=== PATIENT | female | born 1985 | race Caucasian/White ===

== ENCOUNTER 2018-05-22 15:18 | Emergency (ER) | payer SELFPAY ==
[~2018-05-22] VITALS: Ht 177.8 cm; Wt 100.9 kg
[~2018-05-22 15:18] MED LIST: MOTRIN 600600 MG/TAB PO; PRENATAL1 TA1 PO; SENOKOT S 50 MG1 TAB PO
[2018-05-22 15:25] VITALS: TEMP 98.9
[2018-05-22 16:55] VITALS: BP 106/80; PULSE 100
== END 2018-05-22 16:56 | disposition home or self-care (01) ==
LOC: COL.ER 15:18
DX: O9A.212 Injury, poisoning and certain other consequences of external causes complicating pregnancy, second trimester (principal); S30.0XXA Contusion of lower back and pelvis, initial encounter; Z79.1 Long term (current) use of non-steroidal anti-inflammatories (NSAID); Z3A.17 17 weeks gestation of pregnancy; W18.30XA Fall on same level, unspecified, initial encounter; Y99.0 Civilian activity done for income or pay

== ENCOUNTER 2018-10-30 14:54 | Inpatient (IN) | payer BC ==
[2018-10-30] VITALS (27 sets, daily range): BP systolic 93–164; BP diastolic 46–102; PULSE 86–137; TEMP 98.8
[~2018-10-30] VITALS: Ht 172.7 cm; Wt 110.5 kg
--- NOTE | 2018-10-30 14:55 | NUR ---
Patient ambulatory to LR4 with spouse, changed into gown, FHR/TOCO monitor placed and explained. Patient states she was having brown bloody discharge yesterday and today has become more bright red and having some irregular contractions, denies leaking of fluid. SVE-2/50/-3 per L.Bulk RN and dark bloody show on two fingers and noted small amount on inner thighs. Plan of care discussed.
[2018-10-30] MEDS ORDERED: COLACE 100100 MG/CAP PO (15:11)
[2018-10-30] MEDS ORDERED: PROFERRIN ES12 MG PO (15:11)
--- NOTE | 2018-10-30 16:45 | NUR ---
Dr Diallo at nurses station and reviews FHR strip and updated on patient. Physician orders to keep her on the monitor and he will recheck after he is done with his . 1650: Patient calls out and states she has had more bleeding in the toilet. This RN in to assess. Patient having bright red blood on toilet paper when she wipes. Will update Dr. Diallo.
--- NOTE | 2018-10-30 17:40 | NUR ---
Dr Dialol at bedside assessing patient and FHR strip. Updated on patients vaginal bleeding and assess blood on pad at this time SVE per Dr Diallo and possible SROM due to bloody fluid leaking down patients leg. Order to admit at this time. 1800: Noemy Fernández starts IV at this time and LR infusing.
[2018-10-30 19:09] LABS: HEMATOCRIT 37.9 % (37.0-47.0); HEMOGLOBIN 12.8 g/dl (12.5-16.0); MEAN CELL VOLUME 90 fl (80.0-100.0); MEAN CORPUSCULAR HEMOGLOBIN 30 pg (27.0-31.0); MEAN CORPUSCULAR HGB CONC 34 g/dl (33.0-37.0); MEAN PLATELET VOLUME 12.3 fl (7.4-10.4); PLATELET COUNT 179 K/mm3 (130-400); RED BLOOD COUNT 4.23 M/mm3 (4.10-5.30); REDCELL DISTRIBUTION WIDTH-CV 13.9 % (11.5-14.5)
--- NOTE | 2018-10-30 19:15 | NUR ---
To knee chest for 'back labor', EFM and contractions not monitoring.
--- NOTE | 2018-10-30 19:30 | NUR ---
Asking questions about epidural.
[2018-10-30 19:49] LABS: BAND 4 % (0-10); EOSINOPHIL 1 % (0-4); LYMPHOCYTE 15 % (20.0-51.0); METAMYELOCYTE 1 % (0-0); NEUTROPHILS 74 % (42.0-75.2); PLATELET ESTIMATE NORMAL (NORMAL)
--- NOTE | 2018-10-30 20:15 | NUR ---
Up to side of bed for epidural placement. Marvin NAIL CUTTER here for epidural placement, see anesthesia record.
--- NOTE | 2018-10-30 21:10 | NUR ---
LR to bolus rate, to R lateral. Ephedrine 10 mg IV push for bp.
--- NOTE | 2018-10-30 21:15 | NUR ---
FHT's with variables, and early accelerations to 70's, moderate variability. Maternal BP 118/63. SVE 6cm.
--- NOTE | 2018-10-30 21:50 | NUR ---
FHT's with variables to 90's-100's. Alfredo catheter placed. golf ball sized blood clot noted at vaginal opening, falls out when pt's leg moved. SVE 8cm.
--- NOTE | 2018-10-30 22:10 | NUR ---
FHT's with varibles and early decelerations to 80's-90's.\ 2215 SVE complete. 2217 FHT's to 70's, vaginal bleeding increased
--- NOTE | 2018-10-30 22:30 | NUR ---
Pt set up and prepped for delivery, pushing well. 223 Dr Salter into room. [address] Salter after reduction of nuchal cord x 1.
--- NOTE | 2018-10-30 22:45 | NUR ---
Placenta delivers spont and intact with 3 vessel cord, Pitocin gtt to bolus rate. Perineal repair completed, fundus firm, minimal lochia. Pericare completed, ice pack to perineum, bed together.
[2018-10-31] VITALS: BP 125/57; PULSE 110
--- NOTE | 2018-10-31 02:00 | NUR ---
IV to Int, Epidural catheter dc'd. Stands at bedside, attempts to take a step reports " my feet feel funny", assisted back onto bed, to bathroom via wheelchair. Able to ambulate from door of bathroom to toilet with standby assist of 1. Voids large amount, performs own pericare. Clean gown on, ambulates to wheelcahir at door of bathroom. Transferred to room via wheelchair.
[2018-10-31 05:00] VITALS: BP 122/70; PULSE 92; TEMP 97.7
[2018-10-31 08:22] LABS: MEAN CELL VOLUME 90 fl (80.0-100.0); MEAN CORPUSCULAR HEMOGLOBIN 30 pg (27.0-31.0); MEAN CORPUSCULAR HGB CONC 33 g/dl (33.0-37.0); MEAN PLATELET VOLUME 11.2 fl (7.4-10.4); PLATELET COUNT 135 K/mm3 (130-400); RED BLOOD COUNT 3.69 M/mm3 (4.10-5.30); REDCELL DISTRIBUTION WIDTH-CV 14.1 % (11.5-14.5)
[2018-10-31 08:32] LABS: HEMATOCRIT 33.2 % (37.0-47.0)
[2018-10-31 08:39] VITALS: BP 126/70; PULSE 88; TEMP 98.1
[2018-10-31 09:06] LABS: BAND 17 % (0-10); EOSINOPHIL 1 % (0-4); LYMPHOCYTE 18 % (20.0-51.0); METAMYELOCYTE 1 % (0-0); NEUTROPHILS 60 % (42.0-75.2); PLATELET ESTIMATE NORMAL (NORMAL)
--- NOTE | 2018-10-31 10:47 | NUR ---
Initial visit; Parents thanked Wing Scorer for offering congratulations and God's blessings for the of their daughter. Wing Scorer thanked family for choosing [place].
[2018-10-31] MEDS ORDERED: IBU600 MG PO (11:59)
[2018-10-31 12:00] VITALS: BP 117/70; PULSE 89; TEMP 98.2
[2018-10-31 17:45] VITALS: BP 125/76; PULSE 87; TEMP 97.9
[2018-10-31 21:30] VITALS: BP 119/67; PULSE 76; TEMP 97.6
[2018-11-01 07:45] VITALS: BP 124/71; PULSE 75
== END 2018-11-01 12:15 | disposition home or self-care (01) | DRG 805 ==
LOC: LDRO 14:54 → LDR 17:59 → OB 10-31 03:33 → LDRO 11-01 14:28
PROVIDERS: ADMIT Obstetrics & Gynecology
PROC: 10E0XZZ Delivery of Products of Conception, External Approach (ICD-10-PCS; principal; 2018-10-30)
PROC: 0HQ9XZZ Repair Perineum Skin, External Approach (ICD-10-PCS; 2018-10-30)
DX: O42.92 Full-term premature rupture of membranes, unspecified as to length of time between rupture and onset of labor (principal); O45.93 Premature separation of placenta, unspecified, third trimester; Z37.0 Single live birth; O69.1XX0 Labor and delivery complicated by cord around neck, with compression, not applicable or unspecified; O70.0 First degree perineal laceration during delivery; Z3A.39 39 weeks gestation of pregnancy
CPT/HCPCS: J2590; J7120